=== PATIENT | male | born 1985 | race Caucasian/White ===

== ENCOUNTER 2019-08-31 01:37 | Emergency (ER) | payer OTHER ==
[2019-08-31 02:31] VITALS: RESP 18
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
--- NOTE | 2019-08-31 02:45 | XR ---
EXAMINATION TYPE: XR chest 2V DATE OF EXAM: 08/31/2019 COMPARISON: NONE HISTORY: Chest pain TECHNIQUE: Frontal and lateral views of the chest are obtained. FINDINGS: Heart and mediastinum are normal. Lungs are clear. Diaphragm is normal. Bony thorax appear s normal. Pulmonary vascularity is normal. IMPRESSION: Normal chest.
[2019-08-31 03:37] LABS: ALT 27 U/L (21-72); AST 34 U/L (17-59); African American GFR (CKD) >90 (>60 ml/min/1.73 sqM); Albumin 4.9 g/dL (3.5-5.0); Alkaline Phosphatase 90 U/L (38-126); Blood Urea Nitrogen 16 mg/dL (9-20); Calcium 9.7 mg/dL (8.4-10.2); Carbon Dioxide 18 mmol/L (22-30); Glucose 171 mg/dL (74-99); Magnesium 1.9 mg/dL (1.6-2.3); Non-African American GFR(CKD) >90 (>60 ml/min/1.73 sqM); Total Protein 7.9 g/dL (6.3-8.2)
[2019-08-31 03:41] LABS: Basophils # (A) 0.1 k/uL (0-0.2); Basophils % (A) 1 %; Eosinophils % (A) 0 %; HCT 44.2 % (39.0-53.0); HGB 15.5 gm/dL (13.0-17.5); Lymphocytes % (A) 17 %; MCH 28.2 pg (25.0-35.0); MCHC 35.1 g/dL (31.0-37.0); MCV 80.3 fL (80.0-100.0); Mean Platelet Volume 7.7; Monocytes # (A) 0.7 k/uL (0-1.0); Monocytes % (A) 6 %; Neutrophils # (A) 8.9 k/uL (1.3-7.7); Neutrophils % (A) 75 %; Platelet Count 219 k/uL (150-450); RBC 5.51 m/uL (4.30-5.90); RDW 12.9 % (11.5-15.5); WBC 11.9 k/uL (3.8-10.6)
[2019-08-31 03:47] LABS: Anion Gap 14 mmol/L; Chloride 107 mmol/L (98-107); Potassium 3.5 mmol/L (3.5-5.1); Sodium 139 mmol/L (137-145)
[2019-08-31 04:13] LABS: INR 0.9 (<1.2); Partial Thromboplastin Time 22.1 sec (22.0-30.0); Prothrombin Time 10.2 sec (9.0-12.0)
[2019-08-31 04:16] LABS: D-Dimer 0.83 mg/L FEU (<0.60)
--- NOTE | 2019-08-31 04:58 | CT ---
EXAMINATION TYPE: CT angio chest DATE OF EXAM: 08/31/2019 4:50 AM COMPARISON: None HISTORY: chest pain CT DLP: 374.20 mGycm Automated exposure control for dose reduction was used. CONTRAST: CTA scan of the thorax is performed with IV Contrast, patient injected with 80 mL of Isovue 370, pulm onary embolism protocol. . FINDINGS: There are 3-D post processed images. There is no mediastinal adenopathy. Thoracic aorta is intact without evidence of aneurysm or dissecti on. There are no hilar masses. Heart size is normal. There is no pericardial effusion. There is small hiatal hernia. There is normal contrast opacification of the pulmonary arteries. There are no filling defects. The lungs are clear of infiltrate. There is no evidence of a pulmonary mass. Thoracic vertebra have normal spacing and alignment. Posterior elements are intact. There is no evide nce for fracture. Ribs appear intact. IMPRESSION: NEGATIVE EXAM. NO EVIDENCE OF PULMONARY EMBOLISM.
[2019-08-31 06:28] VITALS: BP 122/82; PULSE 90
== END 2019-08-31 06:27 | disposition home or self-care (01) ==
LOC: EC 01:37
DX: R07.89 Other chest pain (principal); R79.89 Other specified abnormal findings of blood chemistry; R06.02 Shortness of breath; F17.200 Nicotine dependence, unspecified, uncomplicated
CPT/HCPCS: 36415; 71046; 71275; 80053; 83735; 84484; 85025; 85379; 85610; 85730; 93005; 99285